=== PATIENT | female | born 1990 | race Caucasian/White ===

== ENCOUNTER 2017-05-20 19:34 | Inpatient (IN) | payer OTHER, SELFPAY ==
[2017-05-20 20:01] VITALS: BMI 24.3
--- NOTE | 2017-05-20 21:03 | PDOC.LDHP ---
Labor and Delivery H&P Chief complaint: contractions HPI: 26 y/o at 39w5d, patient of Dr. Gibbs, presents with contractions since this afternoon. Ctx q 3-5 mins. Denies VB, LOF, or decreased FM. SVE in clinic 4cm this morning. ROS neg for HEENT, CV, pulm, GI, , neuro, psych, skin, musculoskeletal, or constitutional symptoms other than mentioned above. OB History Details: 1 prior term Current complications: none Current medications: pre-hardeep vitamins Previous surgical history: none Allergies/Adverse Reactions: Allergies Allergy/AdvReac Type Severity Reaction Status Date / Time amoxicillin Allergy Mild Rash Verified 05/20/17 19:57 Social history: none - Physical Exam Vital signs reviewed and normal: yes General: NAD, resting Lungs: nonlabored breathing Abdomen: gravid Extremeties: no edema FHT: category 1 (120s, mod variability, + accels, no decels) [place] contractions every: 3 mins - Vaginal Exam cm dilated: 4 (SROM after walking) Effacement: 75% Station: -2 - OB Labs GBS: positive - Assessment L&D Assessment: term rupture in membranes - Plan Plan: admit to L&D, GBS antibiotic prophylaxis, informed consent obtained, anesthesia consult for pain management -: Dr. Gibbs notified
[2017-05-20] MEDS ORDERED: Penicillin G Potassium 5 MILL.UNITS VIAL ONE (23:07)
[2017-05-20] MEDS ORDERED: LR / Pitocin 40 units/1000 ml 1,000 ML IV PRN (23:09)
[2017-05-20] MEDS ORDERED: Misoprostol 200 MCG TAB PR PRN (23:09)
[2017-05-20] MEDS ORDERED: Methylergonovine 0.2 MG/ML VIAL IM PRN (23:09)
[2017-05-20] MEDS ORDERED: Ondansetron HCl/PF 4 MG/2 ML Vial IVP PRN (23:09)
[2017-05-20] MEDS ORDERED: Acetaminophen 500 MG TAB PO PRN (23:09)
[2017-05-20] MEDS ORDERED: Ibuprofen 800 MG TAB PO PRN (23:09)
[2017-05-20] MEDS ORDERED: HYDROcodone/Acetaminophen 5/325 mg Tablet PO PRN ×2 (23:09)
[2017-05-20] MEDS ORDERED: Carboprost 250 MCG/ML AMP IM PRN (23:09)
[2017-05-20] MEDS ORDERED: Lidocaine 1% (PF) 30 ML VIAL SC PRN (23:09)
[2017-05-20] MEDS ORDERED: Promethazine HCl 25 MG/ML VIAL IM PRN (23:09)
[2017-05-20] MEDS ORDERED: Diphenoxylate HCl/Atropine Tablet PO PRN ×2 (23:09)
[2017-05-20] MEDS ORDERED: CEFAZOLIN/Water 2 GM/20 ML SYRINGE ONE (23:13)
[2017-05-20] MEDS ORDERED: Lactated Ringer's 1,000 ML IV SCH (23:15)
[2017-05-20] MEDS ORDERED: CEFAZOLIN/Water 2 G/20 ML 2 GM in Pre-Filled Syringe 1 EACH SLOW IVP ONE (23:21)
[2017-05-20 23:34] LABS: Hemoglobin 11.5 g/dL (12.0-16.0); Mean Corpuscular Hemoglobin 33.3 pg (27.0-31.0); Mean Corpuscular Volume 95.2 fl (81.0-99.0); Mean Platelet Volume 7.3 fL (7.4-10.4); Platelet Count 225 thou/uL (130-400); RBC Distribution Width 11.6 % (11.5-14.5); Red Blood Cell (RBC) Count 3.44 mill/uL (4.20-5.40); White Blood Cell (WBC) Count 10.8 thou/uL (4.8-10.8)
[2017-05-20] MEDS ORDERED: Bupivacaine 0.5% 20 ML, Fentanyl 400 MCG in Sodium Chloride 0.9% 72 ML EPIDURAL SCH (23:45)
[2017-05-21 00:12] LABS: HBSAg Index 0.19 S/CO (0-0.99); Hep B Surf Ag Non-Reactive S/CO (NonReactive); Syphilis Antibody Nonreactive (Nonreactive); Syphilis Antibody Index 0.04 S/CO (<1.00 Non-Reactive)
[2017-05-21] MEDS ORDERED: Eucerin (Mineral Oil/Petrolatum,White) 30 gm Jar TOP PRN (00:16)
[2017-05-21] MEDS ORDERED: Promethazine HCl 25 MG/ML VIAL IM PRN (00:16)
[2017-05-21] MEDS ORDERED: ePHEDrine/0.9% NaCl/PF SYRINGE 50 mg/10 ml SLOW IVP PRN (00:16)
[2017-05-21] MEDS ORDERED: Ondansetron HCl/PF 4 MG/2 ML Vial IVP PRN ×2 (00:16→04:32)
[2017-05-21] MEDS ORDERED: Naloxone HCl 0.4 mg/ml Vial IVP PRN ×2 (00:16)
[2017-05-21] MEDS ORDERED: Lactated Ringer's 500 ML IV PRN (00:16)
[2017-05-21] MEDS ORDERED: Acetaminophen 325 MG TAB PO PRN (00:16)
[2017-05-21] MEDS ORDERED: diphenhydrAMINE 50 MG/ML VIAL IVP PRN (00:16)
[2017-05-21] MEDS ORDERED: Communication Order-Pharmacy FS SCH (00:30)
[2017-05-21] MEDS ORDERED: Fentanyl 4mcg/Marcaine 0.1% Cassette 100 ML EPIDURAL SCH (00:30)
--- NOTE | 2017-05-21 01:55 | PDOC.OPDEL ---
OB Operative/Delivery Note Delivery Dr/Surgeon: Edie Bowling MD Pre-Delivery Diagnosis: active labor, ruptured membrane Procedure/Post Delivery Dx: spontaneous vaginal delivery Weeks gestation: 39 Anesthesia: epidural - Findings A Sex: female Weight: 7 lb 8.531 oz - 1 min: 9 - 5 min: 9 - Additional Findings/Plan Placenta delivered: spontaneous Repaired Obstetrical Laceration: none Estimated blood loss: 200 Compilations/Other Findings: I was present for precipitous delivery of a vigorous female infant over an intact perineum. Dr. Gibbs arrived just after delivery of placenta. Post delivery plan: routine recovery
[2017-05-21] MEDS ORDERED: HYDROcodone/Acetaminophen 5/325 mg Tablet PO PRN ×2 (04:32)
[2017-05-21] MEDS ORDERED: Milk Of Magnesia 30 ML UDCUP PO PRN (04:32)
[2017-05-21] MEDS ORDERED: Lanolin Ointment 7 GM TUBE TOP PRN (04:32)
[2017-05-21] MEDS ORDERED: Bisacodyl 10 MG SUPP PR PRN (04:32)
[2017-05-21] MEDS ORDERED: Adacel (T-DAP) 0.5 ML VIAL IM ONE (04:32)
[2017-05-21] MEDS ORDERED: LR / Pitocin 40 units/1000 ml 1,000 ML IV SCH (04:32)
[2017-05-21] MEDS: Ibuprofen 800 MG TAB PO SCH ×2 (05:09→15:57)
[2017-05-21] MEDS ORDERED: CEFAZOLIN 1 GM in Sodium Chloride 0.9% 100 ML IVPB SCH (06:00)
[2017-05-21] MEDS ORDERED: CEFAZOLIN 1 GM, Syringe 2.5 ML in Sterile Water 7.5 ML SLOW IVP SCH (06:00)
[2017-05-21] MEDS: Ferrous Sulfate 325 MG TAB PO SCH ×2 (08:45→16:25)
[2017-05-21] MEDS: Docusate Calcium (SURFAK) 240 MG CAP PO SCH ×2 (08:45→22:50)
[2017-05-21] MEDS ORDERED: FLU VACC QS2017-18 36 mo. & older 0.5 ML SYRINGE IM ONE (09:00)
[2017-05-21] MEDS ORDERED: Bupivacaine 0.25% HCL 30 ML VIAL ONE (09:36)
[2017-05-22] MEDS: Ibuprofen 800 MG TAB PO SCH ×2 (05:37→14:12)
[2017-05-22] MEDS: Ferrous Sulfate 325 MG TAB PO SCH ×2 (09:06→17:25)
[2017-05-22] MEDS: Docusate Calcium (SURFAK) 240 MG CAP PO SCH (09:06)
[2017-05-23] MEDS: Ibuprofen 800 MG TAB PO SCH ×2 (00:17→07:12)
[2017-05-23] MEDS: Docusate Calcium (SURFAK) 240 MG CAP PO SCH ×2 (00:17→13:33)
[2017-05-23 09:21] VITALS: BP 110/71; TEMP 98.5
[2017-05-23] MEDS: Ferrous Sulfate 325 MG TAB PO SCH (13:33)
== END 2017-05-23 16:14 | disposition home or self-care (01) | DRG 775 ==
LOC: L&D/OP 19:34 → L&D 05-21 00:57 → 3SW 05-21 04:24
PROVIDERS: ADMIT Family Medicine; ATTEND Family Medicine
PROC: 10E0XZZ Delivery of Products of Conception, External Approach (ICD-10-PCS; principal; 2017-05-21)
DX: O99.824 Streptococcus B carrier state complicating childbirth (principal); Z37.0 Single live birth; Z3A.39 39 weeks gestation of pregnancy
CPT/HCPCS: 36415; 51702; 85027; 86780; 87340; 99285; J2001; J2540; J3010; J3490; J7050; S0020

== ENCOUNTER 2019-07-12 13:42 | Outpatient (CLI) | payer OTHER ==
--- NOTE | 2019-07-12 15:47 | ULT ---
OBSTETRICAL ULTRASOUND: DATE: 07/12/2019. COMPARISON: None. HISTORY: A 28-year-old female undergoing assessment for size and dates. TECHNIQUE: Multiplanar, wu scale, sonographic imaging of the gravid uterus obtained. FINDINGS: There is a single intrauterine gestation demonstrating a vertex presentation. The placenta is locate d anteriorly, demonstrating no evidence for previa or abruption. Cervical length is 4 cm. The intracranial contents appear grossly unremarkable. Images of the nose and lips demonstrate findings suspicious for a possible cleft lip/palate. Four-chamber heart view is unremarkable. heart rate is 140 b.p.m. stomach and umbilical cord insertion site appear grossly unremarkable as does the urinary bladd er. A 3-vessel cord is noted. The spine appears grossly unremarkable. Amniotic fluid index is 10.1 cm. The left kidney appears unremarkable. There are 3 round hypoechoic areas in the expected location of the left kidney measuring up to approximately 5-6 mm. Region of right kidney appears unremarkable. Biometry: BPD 4.9 cm, 21 weeks 0 days HC 19.2 cm, 21 weeks 4 days AC 16.2 cm, 21 weeks 3 days FL 3.5 cm, 21 weeks 0 days Average age based on ultrasound is 21 weeks 2 days. Estimated weight is 403 gm +/- 59 gm (88th percentile). IMPRESSION: 1. Findings suspicious for possible cleft lip/palate. 2. Three round hypoechoic areas are noted in the region of the left kidney. These appear separate a nd thus, hydronephrosis is doubtful. 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 Close follow up imaging is essential. CODE T
== END 2019-07-12 13:43 | disposition home or self-care (01) ==
LOC: BICULT 13:42
PROVIDERS: ATTEND Family Medicine
DX: Z34.82 Encounter for supervision of other normal pregnancy, second trimester (principal); Z3A.21 21 weeks gestation of pregnancy
CPT/HCPCS: 76805

== ENCOUNTER 2023-06-19 13:10 | Outpatient (CLI) | payer OTHER | END 2023-06-19 13:11 | disposition home or self-care (01) | LOC: BICULT 13:10 | PROVIDERS: ATTEND Family Medicine | DX: Z34.82 Encounter for supervision of other normal pregnancy, second trimester (principal); Z3A.21 21 weeks gestation of pregnancy | CPT/HCPCS: 76805 ==